=== PATIENT | male | born 1985 | race Caucasian/White ===

== ENCOUNTER 2023-09-17 10:21 | Emergency (ER) | payer SELFPAY ==
[~2023-09-17] VITALS: Ht 198.1 cm; Wt 90.7 kg
[~2023-09-17 10:21] MED LIST: HYDACE5 PO; META800 PO; ONDA4 PO
[2023-09-17 10:29] VITALS: BP 153/101
[2023-09-17] MEDS ORDERED: ERYT1OIN LEFTEYE (11:11)
== END 2023-09-17 11:29 | disposition home or self-care (01) ==
LOC: ER 10:21
DX: S05.02XA Injury of conjunctiva and corneal abrasion without foreign body, left eye, initial encounter (principal); W20.8XXA Other cause of strike by thrown, projected or falling object, initial encounter
CPT/HCPCS: 99283; A9270

== ENCOUNTER 2025-04-30 08:45 | Day surgery (SDC) | payer BC ==
[2025-04-30] VITALS (7 sets, daily range): BP systolic 115–136; BP diastolic 72–92
[~2025-04-30] VITALS: Ht 198.1 cm; Wt 89.4 kg
[~2025-04-30 08:45] MED LIST changes: +ATOR40TA PO; +Aspir 8181 MG PO; +ERYT1OIN LEFTEYE
[2025-04-30] MEDS ORDERED: Verapamil HCL 2.5 MG/ML 2ML Injection ONE (11:15)
[2025-04-30] MEDS ORDERED: Nitroglycerin 2 MG/20 ML BTL ONE (11:16)
[2025-04-30] MEDS ORDERED: NS 2,000 ML IV ONE (11:16)
[2025-04-30] MEDS ORDERED: NS 250 ML IV ONE (11:16)
[2025-04-30] MEDS ORDERED: Heparin Sodium 1000 Units/ML 10ML MDV ONE (11:16)
[2025-04-30] MEDS ORDERED: FentaNYL Citrate 50 MCG/ML 2 ML Injection ONE (11:36)
[2025-04-30] MEDS ORDERED: Midazolam HCl 1MG / ML 2ML Vial ONE (11:36)
--- NOTE | 2025-04-30 12:21 | NUR ---
PT BACK FROM PROCEDURE. PT SITTING UP IN RECLINER. GIVEN JUICE AND BREAKFAST TRAY.
--- NOTE | 2025-04-30 13:27 | NUR ---
AIR RELEASED FROM PT TR BAND. TOLERATES WELL. VSS. NADN. S/O AT BEDSIDE. CALL LIGHT WITHIN REACH.
--- NOTE | 2025-04-30 14:16 | NUR ---
PT AND S/O VERBALIZES UNDERSTANDING WRITTEN AND VERBAL INSTRUCTIONS. VSS. NADN,. PT AMBULATES TO RESTROOM AND BACK WITHOUT DIFF. PT IV DC'D. CATH INTACT. PRESSURE DSG APPLIED. PT TR BAND REMOVED. CLOTH DOT WITH DRESSING IN PLACE. NO BLEEDING NOTED. PT DC TO HOME VIA S/O.
== END 2025-04-30 14:16 | disposition home or self-care (01) ==
LOC: MHTC 08:45
DX: I25.10 Atherosclerotic heart disease of native coronary artery without angina pectoris (principal); Z79.82 Long term (current) use of aspirin; Z79.899 Other long term (current) drug therapy
CPT/HCPCS: 76937; 93458; 99152; C1769; C1887; C1894; J1644; J2250; J3010; J7030; J7050; Q9967